=== PATIENT | male | born 1990 | race Two or more races ===

== ENCOUNTER → 2020-02-11 13:46 | Outpatient (BNVA) | payer OTHER, SELFPAY | PROVIDERS: Visit Provider Surgery | DX: K42.9 Umbilical hernia without obstruction or gangrene (principal) | CPT/HCPCS: 99203 ==

== ENCOUNTER 2020-02-23 11:08 | Day surgery (SDC) | payer OTHER, SELFPAY ==
[2020-02-18 18:13] VITALS: BMI 29.0
--- NOTE | 2020-02-20 08:41 | P.CONAN_ITS ---
HPI - Anesthesia Eval Consult details Narrative: 30yo M for Umbilical Hernia repair [facility] Past Medical History Medical History No significant medical problems Surgical History Surgical History History of surgery on right wrist (~2004) Social History Social History Alcohol intake: current Alcohol intake frequency: holidays/special occasions only Smoking Status: Former smoker Tobacco Type: Cigarette Meds Allergies Allergy/AdvReac Type Severity Reaction Status Date / Time clarithromycin [From Biaxin] Allergy Severe hives Verified 02/11/20 14:24 ethinyl estradiol Allergy Severe Itchy Eyes Verified 02/20/20 09:31 levonorgestrel Allergy Severe Itchy Eyes Verified 02/20/20 09:31 Home Medications Medication Instructions Recorded Confirmed Type multivitamin [Multiple Vitamins] 1 tab PO DAILY 02/18/20 02/18/20 History Exam Exam Date and Time: February 20, 2020 0841 Height,Weight and Vital Signs: Height 5 ft 7 in Weight 83.915 kg
[2020-02-23] VITALS (10 sets, daily range): BP systolic 98–131; BP diastolic 45–68; PULSE 60–94; RESP 12–18; TEMP 36.4; O2SAT 94–98
[2020-02-23] MEDS: ceFAZolin Sodium/Dextrose,Iso 2 GM/50 ML PIGGYBACK IV (12:12)
[2020-02-23] MEDS: Lactated Ringers 1,000 ML 100 ML IVCONT (12:12)
--- NOTE | 2020-02-23 13:17 | MHC.SHP ---
Pre-Procedural Eval Section A The patient is an INPATIENT: No Changes since office visit: Yes Patient answered all questions; No Cold of Flu in the past 2 weeks, No New Medical Problems and No Changes in Medication The History & Physical has been completed within 30 days and I have reviewed it.: Yes Section B Chief Complaint: Umbilical hernia Allergies: Allergies Allergy/AdvReac Type Severity Reaction Status Date / Time clarithromycin [From Biaxin] Allergy Severe hives Verified 02/11/20 14:24 ethinyl estradiol Allergy Severe Itchy Eyes Verified 02/20/20 09:31 levonorgestrel Allergy Severe Itchy Eyes Verified 02/20/20 09:31 Plan Diagnosis/Plan: Unchanged Patient has been examined and remains a candidate for the planned procedure
--- NOTE | 2020-02-23 13:34 | P.CONAN_ITS ---
[facility] Past Medical History Medical History No significant medical problems Surgical History Surgical History History of surgery on right wrist (~2004) Social History Social History Alcohol intake: current Alcohol intake frequency: holidays/special occasions only Smoking Status: Former smoker Tobacco Type: Cigarette Smoked in Last 30 Days: No Smoking Quit Date: 07/2019 Use of substances other than those prescribed or required for medical reasons: No Advance Directives: No Advance Directives Information Provided: No Advance Directives on File: No Recently lost weight without trying: No Meds Allergies Allergy/AdvReac Type Severity Reaction Status Date / Time clarithromycin [From Biaxin] Allergy Severe hives Verified 02/11/20 14:24 ethinyl estradiol Allergy Severe Itchy Eyes Verified 02/20/20 09:31 levonorgestrel Allergy Severe Itchy Eyes Verified 02/20/20 09:31 Home Medications Medication Instructions Recorded Confirmed Type multivitamin [Multiple Vitamins] 1 tab PO DAILY 02/18/20 02/18/20 History Exam Exam Date and Time: February 23, 2020 1334 Height,Weight and Vital Signs: Height 5 ft 7 in Weight 83.915 kg Last Vital Signs Temp 97.6 F 02/23/20 12:01 Pulse 60 02/23/20 12:01 Resp 16 02/23/20 12:01 BP 130/61 02/23/20 12:01 Pulse Ox 98 02/23/20 12:01 Airway Mallampati Class: II TM Dist: >3cm Neck ROM: Full Assessment and Plan Assessment Anesthesia Assessment: Anesthesia Plan Discussed and Chart Reviewed Final Anesthetic Review NPO: Yes ASA Class: I Final Preanesthetic Review: No Changes in Pt Med Stat, Meds/Allgs Chart Reviewed, Consent Obtained/Reviewed and Anes Risks/Benef Reviewed Patient Risk: Low Procedure Risk: Low Assessment/Block/Sedation in SS: Assess/Block/Sedation-SS Anesthetic Plan Anesthetic Plan: MAC: Disposition: Standard PACU
--- NOTE | 2020-02-23 14:09 | P.BOP_ITS ---
Brief Operative Note Date of procedure: 02/23/20 Pre-op diagnosis: Umbilical hernia Post-op diagnosis: same Procedure: repair of umbilical hernia with mesh Implants: 4.[address] mesh Surgeon: Tres Bowen MD Anesthesia: GLMA Workers Compensation Attorney: Alissa Burnett Estimated blood loss (mL): 10 Pathology: none sent Condition: stable Disposition: PACU
--- NOTE | 2020-02-23 14:11 | W.PM.OPN ---
Operative Note Operative Note Narrative: Date of procedure: 02/23/20 Pre-op diagnosis: Umbilical hernia Post-op diagnosis: same Procedure: repair of umbilical hernia with mesh Indications: The patient is a 30-year-old male presenting with complaints of a painful umbilical hernia. On examination the patient is noted to have a lump to the left of midline adjacent to the umbilicus which increases in size with Valsalva maneuvers. The hernia does not reduce completely light pressure. Operative findings: Patient was found to have approximately 3 hernia defects adjacent to the umbilicus. A 4.3 cm round Ventralex mesh was used to close the opening which measured approximately 1 cm in diameter. Procedure details: Patient was brought to the OR placed in a supine position. After administering general anesthesia the patient's abdomen was prepped with ChloraPrep and draped in a sterile fashion. A surgical time-out was called and the consent confirmed. Patient received preoperative antibiotics and Venodyne boots were in place. Local anesthesia consisting of 0.75% Sensorcaine was then infiltrated in a periumbilical location. A midline incision around the umbilicus to the left of midline was then created with a 15 blade scalpel. Incision was carried out through subcutaneous tissue up to the hernia sac. The hernia sac was then sharply dissected down to the fascial edges. The umbilical skin was then lifted off the fascia using electrocautery. Three hernia sacs were identified and combined to 1 defect. Preperitoneal fat was noted within the hernia sacs. The sacs were reduced and a preperitoneal space created with electrocautery. A 4.3 cm round Ventralex mesh was obtained and placed into the preperitoneal space. The mesh was then secured in place using [id number] 1. Tycron sutures. Fascia was closed over the mesh with the Tycron suture. Wounds were then irrigated with saline solution and suctioned dry. Wounds were checked for hemostasis. Umbilical skin was reapproximated to the fascial edge using a 3 0 Polysorb suture. Dermis was reapproximated using interrupted 3 0 Polysorb sutures. Skin was then closed using a running subcuticular 4 0 Polysorb suture. Steri-Strips 2 x 2 gauze and Tegaderm were then applied. The patient tolerated the procedure well. Sponge, instrument, and needle counts reported as correct. Implants: 4.[address] mesh Surgeon: Tres Bowen MD Anesthesia: GLMA [employer]fer [employer] Technician: Alissa Burnett Estimated blood loss (mL): 10 Pathology: none sent Condition: stable Disposition: PACU
[2020-02-23] MEDS: oxyCODONE HCl Immed Release 5 MG TABLET 10 MG PO (15:25)
== END 2020-02-23 17:00 | disposition home or self-care (01) ==
PROVIDERS: PCP Internal Medicine; Visit Provider Surgery
PROC: (CPT 49585; principal; 2020-02-23 13:00)
DX: K42.9 Umbilical hernia without obstruction or gangrene (principal); Z87.891 Personal history of nicotine dependence; Z88.1 Allergy status to other antibiotic agents; Z88.8 Allergy status to other drugs, medicaments and biological substances; Z79.899 Other long term (current) drug therapy
CPT/HCPCS: 49585; C1781; J0690; J1100; J2250; J2405; J3010

== ENCOUNTER → 2020-03-05 09:40 | Outpatient (BNVA) | payer OTHER, SELFPAY | PROVIDERS: PCP Internal Medicine; Visit Provider Surgery | DX: Z76.89 Persons encountering health services in other specified circumstances (principal) ==

== ENCOUNTER → 2020-05-12 13:55 | Outpatient (BNVA) | payer OTHER, SELFPAY | PROVIDERS: PCP Internal Medicine; Visit Provider Surgery | DX: Z76.89 Persons encountering health services in other specified circumstances (principal) ==

== ENCOUNTER 2023-01-04 23:42 | Emergency (ER) | payer OTHER, SELFPAY ==
--- NOTE | ~2023-01-04 | CT_ITS ---
EXAMINATION: CT HEAD WITHOUT CONTRAST CLINICAL INFORMATION: Fall. COMPARISON: None available. TECHNIQUE: Contiguous axial imaging was performed from the skull base to vertex without intravenous administration of contrast. This CT examination was performed using dose optimization techniques as appropriate, variously including the following: *Automated exposure control *Adjustment of mA and/or kV according to patient size (this includes techniques or standardized protocols for targeted exams where dose is matched to indication/reason for exam; i.e. extremities or head) *Use of iterative reconstruction technique DLP: 1099 mGy-cm FINDINGS: The lateral, third and the fourth ventricles are normally outlined. The cortical sulci and basal cisterns are normally outlined as well. There is no acute territorial defect, hemorrhage or midline shift. The extra-axial spaces are unremarkable. Calvarium: Intact. There is a mildly displaced nasal bone fracture with minimal overlap on the right. Maxillofacial sinuses and mastoids: The small right maxillary sinus opacity. There is an inferiorly displaced comminuted fracture of the right orbit displaced approximately 6 mm into the right maxillary sinus. The inferior rectus muscle is bowed inferiorly into the fracture defect within the posterior inferior rectus muscle abutting the posterior orbital floor. The remaining visualized maxillofacial sinuses and mastoids are clear. Cervical spine: The alignment is normal. The disc spaces are maintained. The bone mineralization is normal. The vertebral body heights are maintained. There is no fracture. The soft tissues are unremarkable. The upper lung stokes are clear. CT/CT cervical spine wo IV con IMPRESSION: 1. No acute intracranial abnormality. 2. Nasal bone fracture. 3. Inferiorly displaced comminuted fracture of floor of the right orbit displaced approximately 6 mm into the right maxillary sinus. The inferior rectus muscle is bowed inferiorly and abuts the posterior orbital cortex posteriorly. 4. No fracture or malalignment of the cervical spine.
[2023-01-04 23:53] VITALS: BP 110/71; PULSE 101; RESP 17; TEMP 36.6; O2SAT 93
[2023-01-05 00:06] VITALS: BP 128/76; PULSE 78; O2SAT 96; BMI 31.3
[2023-01-05 00:13] VITALS: PULSE 89
[2023-01-05 00:40] LABS: MANUAL DIFF FLAG NO
[2023-01-05 00:43] LABS: Basophils Percent Auto 0.5 % (0-2); Eosinophils Absolute Auto 0.2 X10*3/uL (0.0-0.4); Eosinophils Percent Auto 3.5 % (0-4); Hematocrit 45.6 % (42.0-52.0); Hemoglobin 14.7 g/dl (14.0-18.0); Imm Gran Abs Auto 0.02 X10*3/uL (0.00-0.03); Imm Gran Pct Auto 0.4 % (0.0-0.4); Lymphocytes Absolute Auto 1.7 X10*3/uL (1.2-4.9); Lymphocytes Percent Auto 30.1 % (20-40); Mean Corpuscular HGB Conc 32.2 g/dl (31.0-36.0); Mean Corpuscular Hemoglobin 24.7 pg (27.0-33.0); Mean Corpuscular Volume 76.8 fL (80.0-98.0); Mean Platelet Volume 8.5 fL (9.4-12.4); Monocytes Absolute Auto 0.4 X10*3/uL (0.1-1.2); Monocytes Percent Auto 6.5 % (2-11); Neutrophils Absolute Auto 3.3 x10*3/uL (2.0-8.3); Platelet Count 306 X10*3/uL (160-400); Red Blood Count 5.94 X10*6/uL (4.60-5.80); Red Cell Distribution Width 14.6 % (11.0-16.0); White Blood Count 5.7 X10*3/uL (4.8-10.8)
[2023-01-05 01:01] LABS: Ethanol 57 mg/dL
[2023-01-05 01:19] LABS: Alanine Aminotransferase 45 U/L (0-40); Albumin Level 4.6 g/dL (3.5-5.0); Alkaline Phosphatase 56 U/L (39-117); Anion Gap 15 (12-20); Aspartate Amino Transferase 31 U/L (5-37); Bilirubin Total 0.3 mg/dL (0.0-1.0); Blood Urea Nitrogen 13 mg/dL (9-16); Calcium 9.5 mg/dL (8.4-10.2); Carbon Dioxide 22 mmol/L (22-29); Chloride 107 mmol/L (96-108); Creatinine Clr Calc Pharmacy 91.6; Estimated Glomerular Filt Rate > 60; Glucose Random 140 mg/dL (60-115); Potassium 3.7 mmol/L (3.3-5.1); Sodium 141 mmol/L (135-145); Total Protein 7.7 g/dL (6.5-8.0)
[2023-01-05 02:21] VITALS: BP 115/77; PULSE 94; RESP 17; TEMP 36.8; O2SAT 96
--- NOTE | 2023-01-05 03:24 | ED_ITS ---
HPI - Alcohol General Chief Complaint: ETOH/Substance Use Stated Complaint: FALL, ETOH Time Seen by Provider: 01/05/23 00:43 Source: patient Mode of arrival: ambulatory Limitations: no limitations History of Present Illness HPI narrative: Patient was in a glove had few drinks got intoxicated fell hitting his left eye to the angle of the a pool table and then fell further down and hitting his right eye to grow came with laceration to both upper eyelids no loss of vision no loss of consciousness no seizure no other injury patient's family witnessed the fall Related Data Home Medications Medication Instructions Recorded Confirmed multivitamin (Multiple Vitamins 1 tab PO DAILY 02/18/20 05/12/20 tablet) Allergies Allergy/AdvReac Type Severity Reaction Status Date / Time clarithromycin [From Biaxin] Allergy Severe hives Verified 02/11/20 14:24 ethinyl estradiol Allergy Severe Itchy Eyes Verified 02/20/20 09:31 levonorgestrel Allergy Severe Itchy Eyes Verified 02/20/20 09:31 Review of Systems 2 Review of Systems: Yes all other systems are reviewed and are negative [facility] Past Medical History Medical History No significant medical problems Surgical History History of surgery on right wrist (~2004) Social History Social History Alcohol intake: current Alcohol intake frequency: a few times a month Alcohol type: beer Smoked in Last 30 Days: Yes Use of substances other than those prescribed or required for medical reasons: No Substance Use Type: Marijuana Advance Directives: No Advance Directives Information Provided: No Physical Exam ED Vital Signs: Vital Signs - 24 hr 01/04/23 23:53 01/05/23 02:21 Temperature 97.9 F 98.2 F Pulse Rate 101 H 94 Respiratory Rate 17 17 Blood Pressure 110/71 115/77 Pulse Oximetry 93 96 Oxygen Delivery Method Room Air Room Air BMI result Body Mass Index 31.3 Appearance: Alert. Oriented X3. No acute distress. Eyes: PERRLA, No Nystagmus EOMI no entrapment of extraocular muscle visual acuity normal fundus normal mentation normal superficial laceration 2 cm left eyebrow superficial abrasion on right eyebrow ENT: Pharynx normal. Oral Mucosa moist Neck: Normal inspection. Neck supple. No midline tenderness CVS: Normal heart rate and rhythm. Pulses normal. Respiratory: No respiratory distress. Equal air entry bilateral, no wheezing/rales/rhonchi Abdomen: Soft and nontender. Bowel sounds are present, no mass palpable, no CVA tenderness Skin: Skin warm and dry. Normal skin color. Normal skin turgor. Extremities: No lower extremity edema. No calf tenderness Neuro: Oriented X 3. No motor deficit. No sensory deficit.No cerebellar signs , cranial nerves II-XII intact Medical Decision Making Medical Decision Making [facility] Narrative: Patient with right orbital floor fracture with slight entrapment of inferior rectus muscle but patient has a good eye ball movements no diplopia or loss of vision patient will be seeing Dr. Ding in a.m. CT scan of the head and C- spine negative otherwise Lab Data [facility] Lab Attestation statement: I reviewed the patient's lab results. 01/05/23 00:28 01/05/23 00:28 Labs: Lab Results 01/05/23 Range/Units 00:28 WBC 5.7 (4.8-10.8) X10*3/uL RBC 5.94 H (4.60-5.80) X10*6/uL Hgb 14.7 (14.0-18.0) g/dl Hct 45.6 (42.0-52.0) % MCV 76.8 L (80.0-98.0) fL MCH 24.7 L (27.0-33.0) pg MCHC 32.2 (31.0-36.0) g/dl RDW 14.6 (11.0-16.0) % Plt Count 306 (160-400) X10*3/uL MPV 8.5 L (9.4-12.4) fL Immature Gran % (Auto) 0.4 (0.0-0.4) % Neut % (Auto) 59.0 (45-73) % Lymph % (Auto) 30.1 (20-40) % Dukes % (Auto) 6.5 (2-11) % Eos % (Auto) 3.5 (0-4) % Baso % (Auto) 0.5 (0-2) % Lymph # (Auto) 1.7 (1.2-4.9) X10*3/uL Dukes # (Auto) 0.4 (0.1-1.2) X10*3/uL Eos # (Auto) 0.2 (0.0-0.4) X10*3/uL Baso # (Auto) 0.0 (0.0-0.2) X10*3/uL Abs Immat Gran (auto) 0.02 (0.00-0.03) X10*3/uL Absolute Neuts (auto) 3.3 (2.0-8.3) x10*3/uL Absolute Nucleated RBC 0.000 (0.0-0.012) X10*3/uL Nucleated RBC % (auto) 0.0 (0.0-0.2) /100WBC Sodium 141 (135-145) mmol/L Potassium 3.7 (3.3-5.1) mmol/L Chloride 107 (96-108) mmol/L Carbon Dioxide 22 (22-29) mmol/L Anion Gap 15 (12-20) BUN 13 (9-16) mg/dL Creatinine 1.22 (0.5-1.4) mg/dL Estim Creat Clear Calc 91.6 Estimated GFR > 60 Random Glucose 140 H (60-115) mg/dL Calcium 9.5 (8.4-10.2) mg/dL Total Bilirubin 0.3 (0.0-1.0) mg/dL AST 31 (5-37) U/L ALT 45 H (0-40) U/L Alkaline Phosphatase 56 (39-117) U/L Total Protein 7.7 (6.5-8.0) g/dL Albumin 4.6 (3.5-5.0) g/dL Ethyl Alcohol 57 mg/dL Radiology Impression Discussion of test interpretation with radiology: I have reviewed the radiologist's reading. Radiologist Impression: CT/CT head/brain wo IV con IMPRESSION: 1. No acute intracranial abnormality. 2. Nasal bone fracture. 3. Inferiorly displaced comminuted fracture of floor of the right orbit displaced approximately 6 mm into the right maxillary sinus. The inferior rectus muscle is bowed inferiorly and abuts the posterior orbital cortex posteriorly. 4. No fracture or malalignment of the cervical spine. Discharge Plan Discharge Clinical Impression: Alcoholic intoxication, Fracture of orbital floor Patient Disposition: Home, Self-Care Instructions: Facial Fracture (ED), Alcohol Intoxication (ED) Additional Instructions: Care as advised No over-exertion/swimming/diving see Dr. Ding in a.m. for further management of fracture of the right orbit Report to the ER immediately if difficulty in moving right eyeball/double vision Prescriptions: No Action multivitamin [Multiple Vitamins] Tablet 1 tab PO DAILY Referrals: Donte Ding [Physician] - 1 day (orbital floor fx) Interventions: ED Discharge Assessment Last Done: 01/05/23 03:52 Discharge Date/Time: 01/05/23 03:54
== END 2023-01-05 03:54 | disposition home or self-care (01) ==
PROVIDERS: Emergency Provider Internal Medicine
DX: S02.31XA Fracture of orbital floor, right side, initial encounter for closed fracture (principal); S01.112A Laceration without foreign body of left eyelid and periocular area, initial encounter; S01.111A Laceration without foreign body of right eyelid and periocular area, initial encounter; W01.190A Fall on same level from slipping, tripping and stumbling with subsequent striking against furniture, initial encounter; F10.220 Alcohol dependence with intoxication, uncomplicated; Y90.2 Blood alcohol level of 40-59 mg/100 ml; Y93.89 Activity, other specified; Y92.511 Restaurant or cafe as the place of occurrence of the external cause; Y99.9 Unspecified external cause status
CPT/HCPCS: 36415; 70450; 72125; 80053; 80307; 85025; 99284